=== PATIENT | female | born 1985 | race Caucasian/White ===

== ENCOUNTER 2017-09-21 07:54 | Inpatient (IN) ==
--- OUTSIDE RECORDS SUMMARY | 2017-09-21 07:59 | External Medical Summary ---
:1985 Author Organization [employer] Care Team Providers Name Role Phone Friend, Codi Provider Role Unavailable Allergies No Known Allergies Problems Problem Type Condition Code Onset Dates Condition Status Problem Lumbar degenerative disc disease M51.36 Active Problem Low back pain M54.5 Active Problem Anxiety F41.9 Active Problem Spondylolisthesis at L5-S1 level M43.17 Active Problem Migraine G43.909 Active Problem Gastro-esophageal reflux disease K21.9 Active without esophagitis Medications No Known Medications Results No Known Results Summary Purpose [employer] Submission
--- OUTSIDE RECORDS SUMMARY | 2017-09-21 08:00 | External Medical Summary ---
:1985 Author Organization [employer] Care Team Providers Name Role Phone Deisi Correa Provider Role Unavailable Allergies No Known Allergies Problems Problem Type Condition ICD-9 Code Onset Dates Condition Status Problem Smoker 305.1 Active Problem Anxiety 300.00 Active Problem Lumbar degenerative disc disease 722.52 Active Medications No Known Medications Results No Known Results Summary Purpose [employer] Submission
--- OUTSIDE RECORDS SUMMARY | 2017-09-21 08:01 | External Medical Summary ---
:1985 Author Organization [employer] Care Team Providers Name Role Phone Friend, Codi Provider Role Unavailable Allergies, Adverse Reactions, Alerts Substance Reaction Event Type Tramadol HCl migraine Drug Allergy Penicillin V Potassium Info Not Available Drug Allergy Problems Problem Type Condition Code Onset Dates Condition Status Assessment Spondylolisthesis at L5-S1 level M43.17 Active Assessment Mood disorder F39 Active Assessment Anxiety and depression F41.9 Active Assessment Lumbar degenerative disc disease M51.36 Active Problem Anxiety and depression F41.9 Active Problem Lumbar degenerative disc disease M51.36 Active Problem Mood disorder F39 Active Problem Gastro-esophageal reflux disease K21.9 Active without esophagitis Problem Spondylolisthesis at L5-S1 level M43.17 Active Problem Low back pain M54.5 Active Problem Migraine G43.909 Active Medications Medication Code System Code Instructions Start Date End Date Status Dosage Gabapentin [facility] 23159-017 300 MG Orally Oct 15, 1 capsule 9-19 Three times a day 2014 prn Abilify [facility] 19433-001 10 MG Orally Once Aug 09, 1 tablet 6-30 a day 2015 Procedures Procedure Coding System Code Date OFFICE VISIT EST PATIENT LEVEL 3 CPT-4 88373 Aug 09, 2016 Vital Signs Date/Time: Aug 09, 2016 BMI 26.26 Index Weight 157.8 lbs Height 65 in Blood Pressure Diastolic 88 mm Hg Blood Pressure Systolic 122 mm Hg Cardiac Monitoring Heart Rate 82 /min Temperature 98.6 F Oximetry 99 % Respiratory Rate 18 /min Results No Known Results Summary Purpose [employer] Submission
[2017-09-21] MEDS ORDERED: CITRIC ACID/SODIUM CITRATE 30ml PO ONE ×2 (08:27→08:49)
[2017-09-21] MEDS ORDERED: FAMOTIDINE PB 20 MG/50 ML BAG IV ONE (08:27)
[2017-09-21] MEDS ORDERED: NOZIN NASAL SWAB NAS ONE (08:27)
[2017-09-21] MEDS: LR 1,000 ML IV SCH ×2 (08:40→09:55)
--- NOTE | 2017-09-21 08:45 | Anesthesia Preoperative Report ---
Anesthesia Epidural/Spinal Rec - Date and Time Date: 09/21/17 Preoperative Diagnosis: Spont Labor/previous Procedure: Plan: Spinal - Vital Signs /Para: P:1 - Medictaions & Allergies Inpatient Medications: Current Medications Famotidine/Sodium Chloride (Pepcid Premix) 20 mg in 50 mls @ 100 mls/hr IV PREOP ONE Stop: 09/21/17 08:56 Lactated Ringer's (Lactated Ringers) 1,000 mls @ 0 mls/hr IV .Q0M ANNAMARIE PRN Reason: As Directed Last Admin: 09/21/17 08:40 Dose: 999 mls/hr Isopropyl Alcohol (Nozin Nasal Swab) 1 each ASHLEY 0600,1400,2200 [facility] Allergies/Adverse Reactions: Allergies Allergy/AdvReac Type Severity Reaction Status Date / Time Penicillins Allergy Verified 02/16/17 12:31 - Medical History Respiratory: DENIES: Asthma, Bronchitis, Chronic Obstructive Pulmonary Disease (COPD), Dyspnea, Orthopnea, Pulmonary Embolism, Pneumonia, Upper Respiratory Infection, Pulmonary Edema, Sleep Apnea, Tuberculosis, Other Cardiovascular: DENIES: Abnormal EKG, Angina, Arrhythmia, Congestive Heart Failure, Coronary Artery Disease, Heart Murmur, Hypertension, Hypotension, High Cholesterol, Myocardial Infarction, Rheumatic Fever, Valvular Heart Disease, Other Gastrointestional: Reports: Gastroesophageal Reflux Disease (severe) Neuro/Musculoskeletal: Reports: Back Problems (chronic back pain, works with pain management) Renal/Endocrine: DENIES: Diabetes Mellitus Type 1, Diabetes Mellitus Type 2, Renal Failure, Dialysis, Thyroid Disease, Weight Loss, Weight Gain, Other Other History: Reports: Now - Surgical History HEENT Surgeries: Reports: Tonsillectomy GI Surgery/Treatments: Reports: Appendectomy Musculoskeletal Surgery/Tx: Comment Only: Other (restless leg syndrome) Reproductive Surgery/Treatment: Reports: Breast Augmentation/Reduction, Section Anesthesia Reactions: None - Social History Smoking Status: Former smoker - Pertinent Findings Lab Data: CBC and BMP 09/21/17 08:38 - Physical Exam Respiratory Exam: lungs clear, bilateral breath sounds equal Cardiovascular Exam: regular rate and rhythm, no murmur - Airway Assessment Mallampati Score: I TMD: 3 Fingerbreadths Neck Extension: good Overall Assessment: may be difficult intubation - ASA ASA Score: 2 - Discussion Discussion: Discussed risks/options/alternatives of anesthesia and questions answered. Patient consents. Nursing pain assessment noted. Anesthesia Discussion: family member Attestation Statement: Prior to the delivery of any anesthetic medication, I examined the patient, developed the plan, obtained the patient's consent and discussed the risk and benefits of the procedure with the patient/guardian.
--- NOTE | 2017-09-21 08:47 | OB/GYN Progress Note ---
- Pain Control Pain control: Tolerating well Comments: Rates pain with ctx 04/12 - Pelvic Exam Dilation (cm): 1 Amniotic membrane status: Intact - Contractions Monitor mode: External Contraction frequency: 3 Contraction pattern: Regular Contraction intensity: Moderate - Status status: Category l - Assessment and Plan Assessment: active labor (Regular uterine CTX with 04/12 with CTX prior uterine scar, Labor, Proceed with RLTCS)
[2017-09-21] MEDS ORDERED: CLINDAMYCIN PB 600 MG/50 ML BAG IV ONE (08:49)
[2017-09-21] MEDS ORDERED: GENTAMICIN PB 120 MG/100 ML BAG IV ONE (08:49)
[2017-09-21 08:59] VITALS: BMI 29.9
[2017-09-21] MEDS ORDERED: ONDANSETRON 4 MG/2 ML INJECTION IVP PRN (09:18)
[2017-09-21] MEDS ORDERED: NALOXONE 2 MG/2 ML INJECTION PFS IVP PRN (09:18)
[2017-09-21] MEDS ORDERED: NALBUPHINE 10 MG/ML INJECTION IVP PRN (09:18)
[2017-09-21] MEDS ORDERED: ONDANSETRON 4 MG/2 ML INJECTION ONE (09:28)
[2017-09-21] MEDS ORDERED: MORPHINE SULFATE PF 5mg/10ml INJ (Duramorph) ONE (09:28)
[2017-09-21] MEDS ORDERED: FentaNYL 100 MCG/2 ML INJECTION ONE (09:28)
[2017-09-21] MEDS ORDERED: PHENYLEPHRINE INJ 10 MG/ML VIAL IV ONE (09:32)
[2017-09-21] MEDS ORDERED: EPHEDRINE 50mg/ml INJECTION ONE (09:57)
[2017-09-21] MEDS ORDERED: MIDAZOLAM 2mg/2ml INJECTION ONE (10:07)
[2017-09-21] MEDS ORDERED: OXYTOCIN BOLUS BAG 30 UNIT/500 ML ML IV SCH (10:15)
[2017-09-21] MEDS ORDERED: ACETAMINOPHEN 500 MG TABLET PO PRN (10:48)
[2017-09-21] MEDS ORDERED: HYDROCORTISONE 2.5% CREAM 30gm RECTALLY PRN (10:48)
[2017-09-21] MEDS ORDERED: DiphenhydrAMINE 25 MG CAPSULE PO PRN (10:48)
[2017-09-21] MEDS ORDERED: CALCIUM CARBONATE Chewable 500mg TABLET PO PRN (10:48)
--- NOTE | 2017-09-21 10:52 | Operative Note ---
Operative Note - Date of Operation Date of Operation: 09/21/17 - General : 2 Expected Date of Delivery: 09/29/17 - Preoperative Diagnosis Previous Section (Labor) - Postoperative Diagnosis Postoperative Diagnosis: Same - Procedure Repeat - Surgeon Surgeon: Choco Ricardo DO - Offshoring Manager OB Offshoring Manager: Haseeb Garcia MD - Anesthesia Anesthesia Provider: Francisco Javier Braga CRNA - Estimated Blood Loss Estimated Blood Loss:: 800 - Findings Findings: viable male - APGARS : - Weight [place] Weight (grams): 3094 - Name Name: Daron - Indications Indications: Labor and prior c/s - Description of Procedure Description of Procedure: See dictation.
[2017-09-21] MEDS: D5LR 1,000 ML IV SCH (11:00)
[2017-09-21] MEDS ORDERED: OXYTOCIN DRIP 30 UNIT/500 ML ML IV SCH (11:00)
[2017-09-21] MEDS: HYDROCODONE/APAP 5mg/325mg TABLET PO PRN ×2 (13:22→20:26)
[2017-09-21] MEDS: IBUPROFEN 800 MG TABLET PO PRN (13:22)
--- NOTE | 2017-09-21 17:23 | Anesthesia Postoperative Note ---
- Date and Time Date: 09/21/17 Time: 17:20 - Status Patient Participated in Evaluation: Patient Participated in Person Vital Signs: Temperature 99.1 F 09/21/17 08:59 Pulse Rate 98 09/21/17 08:59 Respiratory Rate 20 09/21/17 08:59 Blood Pressure 133/86 09/21/17 08:59 Pulse Oximetry 98 09/21/17 08:59 Respiratory Function: Airway Patent, Regular Respirations Cardiovascular Function: Regular Pulse Mental Status: Alert and Oriented Pain Intensity: 8 (took a couple of pain meds) Hydration: Taking PO Fluids Complications During Recover: None Apparent Post Anesthesia Care Notes: moves lower extremeties. - Follow-Up Instructions Instructions: Per Surgeon
[2017-09-21] MEDS: SIMETHICONE 80 MG CHEWABLE TABLET PO SCH (23:49)
[2017-09-21] MEDS: NOZIN NASAL SWAB NAS SCH (23:50)
[2017-09-22] MEDS: HYDROCODONE/APAP 5mg/325mg TABLET PO PRN ×6 (00:16→20:30)
[2017-09-22] MEDS: IBUPROFEN 800 MG TABLET PO PRN ×3 (00:16→20:29)
[2017-09-22] MEDS: SIMETHICONE 80 MG CHEWABLE TABLET PO SCH ×3 (00:17→18:13)
[2017-09-22] MEDS: D5LR 1,000 ML IV SCH (00:31)
[2017-09-22] MEDS: NOZIN NASAL SWAB NAS SCH (03:19)
--- NOTE | 2017-09-22 06:15 | OB/GYN Progress Note ---
OB-PP Progress Note - General PPD1 POD:: POD1 Maternal Group B Strep: Negative Maternal blood type: O+ Maternal Rubella Status: Immune - Subjective Date: 09/22/17 Lochia: Minimal Pain: moderate Voiding: dunn still in place Nausea or Vomiting Present: No - Objective Vital Signs: Last Vital Signs Temp 98.0 F 09/22/17 04:00 Pulse 72 09/22/17 04:00 Resp 14 09/22/17 04:00 BP 126/65 09/22/17 04:00 Pulse Ox 96 09/22/17 04:00 General: alert and oriented Cardiovascular: regular rate,rhythm Respiratory: non-labored Abdomen: fundus firm, non-tender Incision: normal, clean, dry, intact Extremities: non-tender Edema: none Laboratory: Laboratory Results - last 24 hr 09/21/17 09/21/17 09/21/17 08:38 08:38 15:08 WBC 11.5 H 14.7 H RBC 4.31 4.04 Hgb 12.7 11.9 L Hct 38.7 35.5 L MCV 89.8 87.9 MCH 29.5 29.5 MCHC 32.8 33.5 RDW Std Deviation 45.0 42.7 Plt Count 175 156 MPV 11.3 11.4 Immature Gran % (Auto) 0.2 Neut % (Auto) 73.1 H Lymph % (Auto) 19.3 L [place] % (Auto) 6.6 Eos % (Auto) 0.7 Baso % (Auto) 0.1 Neut # (Auto) 8.4 H Lymph # (Auto) 2.2 [place] # (Auto) 0.8 Eos # (Auto) 0.1 Baso # (Auto) 0.0 Abs Immat Gran (auto) 0.02 Blood Type O Positive Antibody Screen Negative - Assessment Assessment: SP, Repeat C/S - Plan Plan: routine care
[2017-09-22] MEDS: DOCUSATE CALCIUM 240 MG CAPSULE PO SCH (08:28)
[2017-09-22] MEDS: SIMETHICONE 80 MG CHEWABLE TABLET PO PRN ×2 (12:31→21:30)
--- NOTE | 2017-09-22 17:34 | Operative Note ---
DATE OF SERVICE 09/21/2017 PREOPERATIVE DIAGNOSES 1. Prior section x 1. 2. Labor. POSTOPERATIVE DIAGNOSES 1. Prior section x 1. 2. Labor. SURGEON Choco Ricardo DO MUSICAL INSTRUMENTS ASSEMBLER Haseeb Garcia MD SNOW PLOW TRACTOR OPERATOR Francisco Javier Braga, JITENDRA ANESTHESIA Combined spinal epidural. ESTIMATED BLOOD LOSS 800 mL. FINDINGS Viable male infant in cephalic presentation with Apgars of 9/9/9. Normal uterus, tubes and ovaries. INDICATIONS FOR PROCEDUR This is a G2, P1 who presented at 38 weeks 6 days with painful uterine contractions. We discussed the indications for a repeat low transverse section including the risks, benefits and alternatives including injury to bowel /bladder or fetus along with bleeding with the need for transfusion, need for a second operation, and . Questions were elicited and answered. NARRATIVE OF PROCEDURE The patient was taken to the operating room where spinal epidural anesthesia was obtained without difficulty. She was then prepped and draped in the dorsal supine position with a leftward tilt. A Loza catheter was placed and she was prepped and draped. The prior Pfannenstiel incision scar was noted to have a subtle keloid and this scar was removed with the scalpel. At this time the underlying layers of the s incised with a scalpel and taken down to the layer of the fascia. The fascia was incised in the midline and the fascia incision was then extended laterally with the Mcconnell scissors. The superior aspect of the fascial incision was grasped with the Saul clamp elevated and the fascia was dissected off the rectus muscle sharply with the scalpel. Attention was turned to the lower aspect of the fascial incision which was grasped with a Saul clamp, elevated and the rectus muscle dissected off with the Mcconnell scissors. The rectus muscles were sharply in the midline with a scalpel. The peritoneum was grasped with the Emily clamp, elevated and entered sharply with the Metzenbaum scissors. The peritoneal incision was extended superiorly and inferiorly with good visualization of the bladder with Metzenbaum scissors. The bladder blade was inserted. The vesico peritoneum was grasp elevated and entered sharply with Metzenbaum scissors. The incision was extended laterally with Metzenbaum scissors and the bladder flap was created digitally . At this time the uterine incision was made in a transverse fashion. AROM was performed. The uterine incision was extended laterally with cephalic-caudad traction. The 's head was delivered in the cephalic presentation. Nose and mouth were suctioned with bulb suction and the remainder of the fetus was then delivered. The cord was clamped and cut x 2 and the infant was taken to the recovery team who was waiting. At this time the placenta was delivered through expression. The uterus was exteriorized and cleared of all clot and debris. The uterine incision was repaired with 0-Monocryl in a running locked fashion. Two figure- of-eight sutures were used on the uterus using a suture of 3-0 chromic. Excellent hemostasis was noted at this time and the uterus was placed back into the abdomen and pelvis. Gutters were cleared of all clot and debris. The peritoneum was closed with 3-0 Monocryl in a running fashion. The fascia was closed with 0-Vicryl in a running fashion. Subcutaneous layer was closed with plain gut and the skin was closed with 4-0 Monocryl and Dermabond. The patient tolerated the procedure well. Sponge, lap and needle counts were correct x 2. The patient was taken to the recovery room in stable condition. SALLY
[2017-09-23 00:27] VITALS: RESP 16
[2017-09-23] MEDS: HYDROCODONE/APAP 5mg/325mg TABLET PO PRN ×6 (00:27→20:24)
[2017-09-23] MEDS: IBUPROFEN 800 MG TABLET PO PRN ×3 (04:26→20:24)
[2017-09-23] MEDS: DOCUSATE CALCIUM 240 MG CAPSULE PO SCH (08:35)
[2017-09-23] MEDS: SIMETHICONE 80 MG CHEWABLE TABLET PO SCH ×6 (08:35→22:16)
--- NOTE | 2017-09-23 11:05 | OB/GYN Progress Note ---
OB-PP Progress Note - General PPD2 Maternal Group B Strep: Negative Maternal blood type: O+ Maternal Rubella Status: Immune - Subjective Date: 09/23/17 Lochia: Minimal Pain: controlled Voiding: voiding Nausea or Vomiting Present: No - Objective Vital Signs: Last Vital Signs Temp 97.8 F 09/23/17 08:45 Pulse 85 09/23/17 08:45 Resp 16 09/23/17 08:45 BP 127/80 09/23/17 08:45 Pulse Ox 97 09/23/17 08:45 Urine Output: good General: alert and oriented Incision: normal, clean, intact Extremities: non-tender - Assessment Assessment: SP, Repeat C/S - Plan Plan: routine care Expected date of discharge: 09/24/17
[2017-09-23 12:14] VITALS: O2SAT 95
[2017-09-23] MEDS: NOZIN NASAL SWAB NAS SCH (12:29)
[2017-09-24] MEDS: HYDROCODONE/APAP 5mg/325mg TABLET PO PRN ×3 (00:29→09:09)
[2017-09-24] MEDS: IBUPROFEN 800 MG TABLET PO PRN (05:07)
[2017-09-24 06:31] VITALS: BP 114/69; PULSE 80; TEMP 97.9
[2017-09-24] MEDS: NOZIN NASAL SWAB NAS SCH (06:33)
--- NOTE | 2017-09-24 09:06 | OB/GYN Progress Note ---
OB-PP Progress Note - General PPD3 POD:: POD3 Maternal Group B Strep: Negative Maternal blood type: O+ Maternal Rubella Status: Immune - Subjective Date: 09/24/17 Lochia: Minimal Pain: controlled Voiding: voiding Nausea or Vomiting Present: No - Objective Vital Signs: Last Vital Signs Temp 97.9 F 09/24/17 06:00 Pulse 80 09/24/17 06:00 Resp 16 09/24/17 06:00 BP 114/69 09/24/17 06:00 Pulse Ox 95 09/23/17 12:13 Urine Output: good General: alert and oriented Cardiovascular: regular rate,rhythm Respiratory: non-labored Abdomen: fundus firm, non-tender Incision: normal, clean, dry, intact Extremities: non-tender Edema: none - Assessment Assessment: SP, Repeat C/S - Plan Plan: routine care, discharge home
[2017-09-24] MEDS: DOCUSATE CALCIUM 240 MG CAPSULE PO SCH (09:09)
== END 2017-09-24 11:00 | disposition home or self-care (01) | DRG 766 ==
LOC: OBOBS 07:54 → MC 07:55
PROVIDERS: ADMIT Obstetrics & Gynecology; ATTEND Obstetrics & Gynecology